=== PATIENT | female | born 1990 | race Caucasian/White ===

== ENCOUNTER 2017-12-04 17:12 | Emergency (ER) | payer OTHER ==
[~2017-12-04] VITALS: Ht 170.2 cm; Wt 68.0 kg
[~2017-12-04 17:12] MED LIST: CARAFATE 1 GM TA1 GM PO; CEPHALEXIN 500500 M3 PO; PREVACID30 MG PO; XANAX 0.25 MG0.25 MG PO; ZOFRAN ODT4 MG PO; [UNRECOGNIZED DRUG - REMARK]
[2017-12-04] MEDS ORDERED: IBUPROFEN 800800 M1 PO (17:34)
[2017-12-04] MEDS ORDERED: COLACE100 MG PO (17:34)
[2017-12-04 18:19] LABS: ABSOLUTE BASOPHILS 0.1 thou/uL (0.0-0.2); ABSOLUTE EOSINOPHILS 0.3 thou/uL (0.0-0.7); ABSOLUTE LYMPHOCYTES 2.7 thou/uL (0.8-5.3); ABSOLUTE MONOCYTES 0.7 thou/uL (0.0-1.2); ABSOLUTE NEUTROPHILS 7.5 thou/uL (1.6-8.1); BASOPHILS 0.8 %; EOSINOPHILS 2.4 %; HEMATOCRIT 34.2 % (37.0-47.0); HEMOGLOBIN 11.6 gm/dL (12.0-15.0); LYMPHOCYTES 23.8 %; MCH 30.6 pg (26.0-34.0); MCHC 33.9 g/dL (28.0-37.0); MCV 90.2 fL (80.0-100.0); MONOCYTES 6.3 %; MPV 6.9 fl. (7.2-11.1); NUCLEATED RBCS 0 /100WBC; PLATELET COUNT* 268 thou/uL (150-400); POLYS 66.7 %; RBC 3.79 mil/uL (4.20-5.00); RDW-CV 12.9 % (10.5-14.5); WBC 11.2 thou/uL (4.0-11.0)
[2017-12-04 18:28] LABS: CALCIUM 8.6 mg/dL (8.5-10.1); CREATININE 0.6 mg/dL (0.6-1.3); POTASSIUM 4.1 mmol/L (3.5-5.1)
[2017-12-04 18:32] LABS: ALBUMIN 2.6 g/dL (3.4-5.0); TOTAL BILIRUBIN 0.3 mg/dL (<0.1-1.0); TOTAL PROTEIN 6.1 g/dL (6.4-8.2)
[2017-12-04 19:49] VITALS: BP 116/65
== END 2017-12-04 19:50 | disposition short-term general hospital (02) ==
LOC: M.ERS 17:12
PROVIDERS: Emergency Medicine Emergency Medical Services
DX: O86.12 Endometritis following delivery (principal); N93.8 Other specified abnormal uterine and vaginal bleeding; Z90.49 Acquired absence of other specified parts of digestive tract